=== PATIENT | female | born 2000 | race Caucasian/White ===

== ENCOUNTER 2022-06-13 08:55 | Inpatient (IN) ==
[~2022-06-13 08:55] MED LIST: *HR* Nalbuphine 10 MG/ML AMPUL IV PRN; Azithromycin 500 MG in 0.9 % Sodium Chloride 250 ML IVPB PRN; EPHEDrine 50 MG/ML VIAL IVP PRN; Famotidine 20 MG/2 ML VIAL IVP PRN; Lidocaine 1% 20 ML MDV INFILT PRN; Metoclopramide 10 MG/2 ML VIAL IVP PRN; Naloxone 0.4 MG/ML INJ IVP PRN; Ondansetron 4 MG/2 ML VIAL IVP PRN
[2022-06-13] MEDS ORDERED: Oxytocin 30 UNIT/503 ML BAG IVC SCH ×2 (09:00→16:59)
[2022-06-13] MEDS ORDERED: Ringers Solution, Lactated 1,000 ML IVC SCH (09:00)
[2022-06-13 09:21] LABS: Basophils % 0.3 %; Eosinophils # 0.1 K/mcL (0.0-0.6); Eosinophils % 0.4 %; Hematocrit 36.3 % (35.3-44.9); Hemoglobin 11.9 g/dL (11.5-15.4); Immature Granulocytes % 0.8 % (0-4); Lymphocytes # 2.1 K/mcL (0.6-4.6); Lymphocytes % 15.4 %; Mean Corpuscular HGB Conc 32.8 g/dL (31.6-35.5); Mean Corpuscular Hemoglobin 27.8 pg (28.0-33.3); Mean Corpuscular Volume 84.8 fL (83.0-100.0); Mean Platelet Volume 10.2 fL (9.4-12.4); Monocytes # 0.6 K/mcL (0.0-1.3); Monocytes % 4.7 %; Neutrophils # 10.7 K/mcL (1.6-8.9); Platelet Count 233 K/mcL (140-400); Red Blood Count 4.28 M/mcL (3.82-4.97); Segmented Neutrophils % 78.4 %; White Blood Count 13.7 K/mcL (4.3-11.1)
[2022-06-13] MEDS: Epidural Premix (fent/bupiv) 110 ML EP SCH ×3 (09:26→13:56)
[2022-06-13 10:26] LABS: Amphetamine Screen,Urine Negative ng/mL (Cutoff=1000); Barbiturate Screen,Urine Negative ng/mL (Cutoff=200); Benzodiazepines Screen,Urine Negative ng/mL (Cutoff=200); Cannabinoid Screen,Urine Negative ng/mL (Cutoff = 50); Cocaine Screen,Urine Negative ng/mL (Cutoff= 300); Opiate Screen,Urine Negative ng/mL (Cutoff=300); Phencyclidine Screen,Urine Negative ng/mL (Cutoff=25)
[2022-06-13 14:04] LABS: Alanine Aminotransferase 9 Units/L (7-52); Aspartate Amino Transferase 12 Units/L (13-39); BUN/Creatinine Ratio 20 (6-26); Blood Urea Nitrogen 10 mg/dL (6-20); Lactate Dehydrogenase 193 Units/L (140-271); Uric Acid 4.4 mg/dL (2.3-7.6)
[2022-06-13 14:09] LABS: Protein/Creatinine Ratio,Urine 0.2 mg/mg (0.00-0.20)
[2022-06-13] MEDS ORDERED: Ondansetron ODT 4 MG TAB.RAPDIS SL PRN (16:59)
[2022-06-13] MEDS ORDERED: OXYTOCIN/RINGERS LACTATE 10 UNIT/166.6 ML BAG IVC ONE (16:59)
[2022-06-13] MEDS ORDERED: Benzocaine/Menthol 56 GM AEROSOL SPRAY TP PRN (16:59)
[2022-06-13] MEDS ORDERED: Lanolin 7 G OINT...G. TP PRN (16:59)
[2022-06-14] MEDS: Acetaminophen 325 MG TABLET PO SCH ×3 (04:09→05:58)
[2022-06-14] MEDS: Ibuprofen 600 MG TABLET PO SCH ×2 (05:57→08:15)
[2022-06-14 06:53] VITALS: BP 130/80; PULSE 89; TEMP 97.8; O2SAT 98
[2022-06-14] MEDS ORDERED: Prenatal Vit/FA 1 EACH TABLET PO SCH (09:00)
== END 2022-06-14 14:54 | disposition home or self-care (01) | DRG 560 ==
LOC: 1NENULAB → 1NENUOBS 17:40
PROVIDERS: ADMIT Student in an Organized Health Care Education/Training Program; ATTEND Student in an Organized Health Care Education/Training Program